=== PATIENT | female | born 1960 | race Hispanic/Latino ===

== ENCOUNTER → 2025-07-16 | Day surgery (SDC) | payer BC ==
[2025-07-15 09:43] LABS: BASOPHILS % 0.2 % (0.0-1.0); EOSINOPHILS % 2.0 % (0.0-6.0); LYMPHOCYTES % 42.9 % (18.0-39.1); MONOCYTES % 7.1 % (4.4-11.3); NEUTROPHILS % 47.6 % (38.7-80.0); RED CELL DISTRIBUTION WIDTH 12.1 % (11.7-14.4)
[2025-07-15 10:11] LABS: EST GLOMERULAR FILTRATION RATE 79.0 ML/MIN (>=60)
[~2025-07-16] MED LIST: ACETAMINOPHEN 1000 MG/100 ML 100 ML IV ONE; ATORVASTATIN CA80 MG PO; COQ-10100 MG; D3-5000125 MCG; DEXAMETHASONE SOD PHOS INJ 4 MG/ML SDV ONE; EPHEDRINE SULFATE INJ 50 MG/ML VIAL ONE; FENTANYL CITRATE/PF 100MCG/2 ML INJ ONE; GLIPIZIDE XL10 MG PO; KEFLEX500 MG PO; LIDOCAINE HCL 2% LOCAL INJ 5 ML SDV VIAL INJ ONE; METFORMIN HCL500 M1 PO; MIDAZOLAM HCL 2 MG/2 ML VIAL ONE; NORCO 7.5-3251 EACH PO; ONDANSETRON HCL INJ 2MG/ML 2ML 2 MG/ML VIAL ONE; OZEMPIC2 MG/0.75; PREMPRO 0.3 MG1 EACH PO; PROPOFOL IV EMULSION 10 MG/ML 20 ML VIAL ONE; SUCCINYLCHOLINE CHLORIDE 20 MG/ML 10ML VIAL ONE; ZETIA10 MG PO
[2025-07-16] MEDS: LACTATED RINGER'S 1,000 ML ONE (05:52)
[2025-07-16] MEDS: CEFAZOLIN SODIUM 2 GM ONE (05:52)
[2025-07-16 08:25] VITALS: BP 113/68; PULSE 67; RESP 15; O2SAT 98
== END | disposition home or self-care (01) ==
LOC: OR 05:25
PROVIDERS: ATTEND Podiatrist Foot & Ankle Surgery
DX: D16.32 Benign neoplasm of short bones of left lower limb (principal); E11.9 Type 2 diabetes mellitus without complications; Z79.84 Long term (current) use of oral hypoglycemic drugs; Z79.85 Long-term (current) use of injectable non-insulin antidiabetic drugs; Z01.810 Encounter for preprocedural cardiovascular examination; Z01.812 Encounter for preprocedural laboratory examination
CPT/HCPCS: 36415; 71046; 80048; 82948; 85025; 93005; J0330; J1100; J2003; J2250; J2405